=== PATIENT | male | born 1945 | race Caucasian/White ===

== ENCOUNTER 2019-06-15 06:18 | Day surgery (SDC) | payer OTHER ==
[~2019-06-15] VITALS: Ht 177.8 cm; Wt 110.7 kg
[~2019-06-15 06:18] MED LIST: AMARYL2 MG PO; ARICEPT10 M1 PO; ARTIFICIAL TEA1 EACH; CARDURA4 MG PO; CRESTOR40 MG PO; JANTOVEN5 MG PO; METFORMIN HCL500 MG PO; METOPROLOL SUCC50 MG PO; NAMENDA 10 MG T10 MG PO; REQUIP 0.25 M0.25 M1 PO; SINEMET 25-2501 EAC1 PO
[2019-06-15 07:29] LABS: INR 1.1; PROTIME 11.1 Seconds (9.3-11.4)
[2019-06-15 07:30] VITALS: BP 102/65
== END 2019-06-15 08:45 | disposition home or self-care (01) ==
LOC: OR 06:18 → TBA 06:50 → OR 08:45
PROVIDERS: Ophthalmology
DX: H02.105 Unspecified ectropion of left lower eyelid (principal); H02.102 Unspecified ectropion of right lower eyelid; I10 Essential (primary) hypertension; E78.5 Hyperlipidemia, unspecified; E11.9 Type 2 diabetes mellitus without complications; G20 Parkinson's disease; Z87.891 Personal history of nicotine dependence; Z98.890 Other specified postprocedural states; Z79.899 Other long term (current) drug therapy; Z85.3 Personal history of malignant neoplasm of breast; Z98.41 Cataract extraction status, right eye; Z98.42 Cataract extraction status, left eye; Z79.01 Long term (current) use of anticoagulants
CPT/HCPCS: 50010; 50101; 50386; 50398; 51636; 56527; 56531; 62110; 62850; 70005

== ENCOUNTER 2019-07-13 06:46 | Day surgery (SDC) | payer OTHER ==
[~2019-07-13] VITALS: Ht 177.8 cm; Wt 107.5 kg
[~2019-07-13 06:46] MED LIST changes: -ARTIFICIAL TEA1 EACH; +ARTIFICIAL TEA1 EACH OPHTHALMIC; +CENTRUM SILVER1 EAC2 PO; +FISH OIL 1,001000 M2 PO; +VITAMIN C1000 MG PO
[2019-07-13 07:32] LABS: INR 1.1; PROTIME 11.1 Seconds (9.3-11.4)
[2019-07-13 10:04] VITALS: BP 128/52
--- NOTE | 2019-07-17 06:18 | O ---
[facility] [place] [address] OPERATIVE REPORT Name: KATARINAAQUILESAMADA Oscar MA Room #: DEP [facility]#: [id number] Admission: 07/13/19 Attend Phys: Matt Hargrove MD Discharge: 07/13/19 Date of : 47 Report #: [id number] THIS REPORT FOR: //name// CC: MADELYN Hargrove DATE OF SERVICE: 07/13/2019 FITTING ROOM INSPECTOR: None. PREOPERATIVE DIAGNOSIS: Bilateral upper lid ptosis with superior visual field defects both eyes. POSTOPERATIVE DIAGNOSIS: Bilateral upper lid ptosis with superior visual field defects both eyes. OPERATION PERFORMED: Bilateral upper lid functional ptosis repair. FITTING ROOM INSPECTOR: None. ANESTHESIA: Local with IV sedation. COMPLICATIONS: None. INDICATIONS FOR PROCEDURE: This patient has bilateral upper lid ptosis with superior visual field loss both eyes. Visual field testing demonstrates dense superior visual defects. Retesting with the upper lid elevated shows an improvement in visual field loss of over 30% and in excess of 12 degrees. The current procedure is being undertaken in order to improve the patient's visual function. Informed consent was obtained to include but not limited to the risk of loss of vision, bleeding, infection, scarring, failure to improve the problem and need for further surgery, such as adjustment of lid height. DESCRIPTION OF PROCEDURE: The patient was taken to the operating room, where 2% Xylocaine with epinephrine mixed with equal parts of 0.75% Marcaine with Wydase was administered transcutaneously to each upper lid. The patient was then prepped and draped in the usual sterile fashion. An upper lid crease incision was then made bilaterally and the dissection was carried down until the orbital septum was identified. The orbital septum was then cleared and the preaponeurotic fat identified. The levator aponeurosis was then disinserted from the anterior surface of the tarsal plate and dissected [address] [address] OPERATIVE REPORT Name: AMADA BETANCOURT Oscar MA Room #: DEP [facility]#: [id number] Admission: 07/13/19 Attend Phys: Matt Hargrove MD Discharge: 07/13/19 Date of : 47 Report #: [id number] free in the avascular Nettles's muscle plane. The aponeurosis was then advanced and reattached to the anterior surface of the tarsal plate with interrupted mattress 6-0 Novafil sutures on each side, adjusting for height and contour. The redundant aponeurosis was then amputated. The incision was then closed with multiple interrupted 6-0 chromic sutures that were used to recreate an upper lid crease. The skin was closed with a running 6-0 plain gut suture. The wound was then cleaned and dressed with ophthalmic antibiotic ointment followed by a Telfa pad. The patient was transported to the recovery area, having tolerated the procedure well with no anesthesia or operative complications being noted. <ELECTRONICALLY SIGNED> By: Matt Hargrove MD 07/17/1918 0940 0950 Matt Hargrove MD /nt
== END 2019-07-13 10:24 | disposition home or self-care (01) ==
LOC: OR 06:46 → TBA 06:47 → OR 10:24
PROVIDERS: Ophthalmology
DX: H02.413 Mechanical ptosis of bilateral eyelids (principal); H53.462 Homonymous bilateral field defects, left side; H53.461 Homonymous bilateral field defects, right side; I10 Essential (primary) hypertension; E11.9 Type 2 diabetes mellitus without complications; E78.5 Hyperlipidemia, unspecified; F03.90 Unspecified dementia, unspecified severity, without behavioral disturbance, psychotic disturbance, mood disturbance, and anxiety; G20 Parkinson's disease; Z85.46 Personal history of malignant neoplasm of prostate; I48.91 Unspecified atrial fibrillation; Z98.41 Cataract extraction status, right eye; Z98.42 Cataract extraction status, left eye; Z87.891 Personal history of nicotine dependence; Z98.890 Other specified postprocedural states; Z79.899 Other long term (current) drug therapy
CPT/HCPCS: 50010; 50101; 50386; 50398; 51636; 56528; 56531; 62110; 62850; 70005

== ENCOUNTER 2020-01-18 05:57 | Day surgery (SDC) | payer OTHER ==
[~2020-01-18] VITALS: Ht 177.8 cm; Wt 114.8 kg
[2020-01-18 07:08] LABS: INR 1.2; PROTIME 12.2 Seconds (9.3-11.4)
[2020-01-18 07:29] VITALS: BP 98/52
--- NOTE | 2020-01-22 06:13 | O ---
[facility] [place] [address] OPERATIVE REPORT Name: AMADA BETANCOURT JR Room #: DEP [facility].#: [id number] Admission: 01/18/20 Attend Phys: Matt Hargrove MD Discharge: 01/18/20 Date of : 47 Report #: [id number] THIS REPORT FOR: cc: Bridger Irvin MD,Bridger Hargrove,Matt Velazco MD ~ CC: BRIDGER Hargrove DATE OF SERVICE: 01/18/2020 SURGEON: Matt Hargrove M.D. PIECE JOBBER: None. PREOPERATIVE DIAGNOSIS: Bilateral upper lid dermatochalasia with superior visual field defect. POSTOPERATIVE DIAGNOSIS: Bilateral upper lid dermatochalasia with superior visual field defect. OPERATION PERFORMED: Bilateral upper lid functional blepharoplasty. ANESTHESIA: Local with IV sedation. COMPLICATIONS: None. INDICATIONS FOR SURGERY: This patient has acquired upper lid dermatochalasia with superior visual field loss both eyes because of excessive upper lid tissues to include skin and fat. Visual field testing demonstrates dense superior visual defects. Retesting with the upper lid elevated shows an improvement in visual field loss of over 30% and in excess of 12 degrees. The current procedures are undertaken in order to improve the patient's visual function. Informed consent was obtained to include but not limited to the loss of vision, bleeding, infection, scarring, failure to improve the problem and need for further surgery. DESCRIPTION OF OPERATION: The patient was taken to the operating room, where 2% Xylocaine with epinephrine mixed with equal parts of 0.75% Marcaine with Wydase was administered transcutaneously to each upper lid. The patient was then prepped and draped in the usual sterile fashion, and a skin-marking pen was then utilized to outline an upper lid crease that was symmetrical on each side. Graefe forceps were then used to quantitate the redundant upper lid skin and it [address] [address] OPERATIVE REPORT Name: KATARINAAMADA KWAN Oscar MA Room #: DEP [facility]#: [id number] Admission: 01/18/20 Attend Phys: Matt Hargrove MD Discharge: 01/18/20 Date of : 47 Report #: [id number] was similarly outlined. The incisions were then made with Maryan scissors and a skin-muscle flap removed from each side with high-temp cautery. Hemostasis was achieved with the monopolar cautery as it was throughout the case. The orbital septum was then identified and the central and medial fat pads were inspected. The redundant soft tissue was then sculpted with the monopolar cautery. The upper lid crease was then reformed with tightening of the pretarsal orbicularis muscle. The upper lid crease was then further reformed with multiple interrupted 6-0 chromic sutures. The skin was then closed with a running 6-0 plain gut suture. The wound was then cleaned and dressed with ophthalmic antibiotic ointment and a nonstick dressing. The patient was transported to the recovery area, where cold compresses were applied, having tolerated the procedure well with no anesthetic or operative complications being noted. <ELECTRONICALLY SIGNED> By: Matt Hargrove MD 01/22/20 0613 0818 0830 Matt Hargrove MD /nt
== END 2020-01-18 08:55 | disposition home or self-care (01) ==
LOC: OR 05:57 → TBA 05:58 → OR 08:55
PROVIDERS: Ophthalmology
DX: H02.834 Dermatochalasis of left upper eyelid (principal); H02.831 Dermatochalasis of right upper eyelid; H53.462 Homonymous bilateral field defects, left side; H53.461 Homonymous bilateral field defects, right side; I10 Essential (primary) hypertension; E11.9 Type 2 diabetes mellitus without complications; E78.5 Hyperlipidemia, unspecified; I48.91 Unspecified atrial fibrillation; G20 Parkinson's disease; F03.90 Unspecified dementia, unspecified severity, without behavioral disturbance, psychotic disturbance, mood disturbance, and anxiety; Z98.890 Other specified postprocedural states; Z79.899 Other long term (current) drug therapy; Z98.41 Cataract extraction status, right eye; Z87.891 Personal history of nicotine dependence; Z85.46 Personal history of malignant neoplasm of prostate; Z98.42 Cataract extraction status, left eye; Z79.01 Long term (current) use of anticoagulants
CPT/HCPCS: 50010; 50101; 50386; 50398; 51636; 56531; 70005